=== PATIENT | female | born 2005 | race Caucasian/White ===

== ENCOUNTER → 2024-10-15 10:32 | Outpatient (REF) | payer OTHER, SELFPAY | LOC: PAVMRI 10:32 | PROVIDERS: ATTENDING PHYSICIAN Specialist; FAMILY PHYSICIAN Nurse Practitioner Family | DX: G50.1 Atypical facial pain (principal) | CPT/HCPCS: 70551 ==

== ENCOUNTER → 2025-03-09 07:29 | Outpatient (REF) | payer BC, OTHER, SELFPAY | LOC: MRI 3T 07:29 | PROVIDERS: ATTENDING PHYSICIAN Internal Medicine | DX: M54.13 Radiculopathy, cervicothoracic region (principal) | CPT/HCPCS: 72141 ==